=== PATIENT | male | born 1960 | race African-American/Black ===

== ENCOUNTER 2019-10-29 09:24 | Emergency (ER) | payer MEDICAID ==
[~2019-10-29] VITALS: Ht 165.1 cm; Wt 100.0 kg
[2019-10-29] MEDS ORDERED: HYDROCODONE/ACETAMINOPHEN 5/325MG TABLET PO ONE (11:30)
[2019-10-29 12:24] VITALS: BP 134/77
== END 2019-10-29 12:29 | disposition home or self-care (01) ==
LOC: ER 09:24
DX: M25.512 Pain in left shoulder (principal); I10 Essential (primary) hypertension; W01.0XXA Fall on same level from slipping, tripping and stumbling without subsequent striking against object, initial encounter; Y93.9 Activity, unspecified; Y92.9 Unspecified place or not applicable
CPT/HCPCS: 73030; 99283